=== PATIENT | male | born 1960 | race Caucasian/White ===

== ENCOUNTER 2019-09-20 16:31 | Emergency (ER) | payer MEDICARE, SELFPAY ==
[2019-09-20 16:41] VITALS: BP 157/88; PULSE 86; RESP 16; TEMP 36.6; O2SAT 96; BMI 33.9
[2019-09-20] MEDS: famotidine 20 mg/2 mL INJ 40 MG IVP (17:21)
[2019-09-20] MEDS: sodium chloride 0.9% 1,000 ML 999 ML IV (17:22)
[2019-09-20 17:31] VITALS: BP 149/88; PULSE 68; RESP 13; O2SAT 93
--- NOTE | 2019-09-20 17:45 | ED_ITS ---
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 About 1 hour prior to arrival he got stung by a red wasp and had some difficulty breathing. He immediately uses EpiPen. He presents to the emergency department because his noticed the area that was stung was becoming more erythematous and so brought him in to be evaluated. The patient feels better but tired. He also reports chest pain on the left near where he was stung. MD complaint: allergic reaction Onset (ago): hour(s) (1) Associated symptoms: Reports difficulty breathing, nausea and rash; Deny hoarseness Severity: moderate Treatment prior to arrival: epinephrine Previous Allergic Reaction History: anaphylaxis Review of Systems General: Reports: 10 or more systems reviewed and unremarkable except in HPI and below Const: Denies: fever(s), chills or body aches Eyes: Denies: change in vision or blurry vision ENMT: Denies: throat pain, enlarged tonsils, odynophagia, hoarseness, mouth pain or swelling of lips/tongue Card: Reports: chest pain; Denies: palpitations, irregular heart rhythm, edema or swelling of feet/ankles Resp: Denies: dyspnea, productive cough or non-productive cough GI: Reports: nausea : Denies: flank pain, dysuria, urinary frequency, urinary urgency or urinary hesitancy Musc: Denies: neck pain, back pain or extremity swelling Skin/Breast: Denies: rash, pruritus or erythema Neuro: Denies: headache(s), numbness in extremities or weakness in extremities Endo: Denies: polyuria, polydipsia or tired all the time PFS ED PFSH: Social History Smoking and tobacco status: never smoked Physical Exam Const: COMMON NORMALS: no acute distress, average body habitus, patient oriented x3, no limitations, healthy appearing, alert and well nourished HENMT: COMMON NORMALS: normocephalic, atraumatic and moist oral mucous membranes HEAD & SCALP: normocephalic and atraumatic Neck/C-Spine: COMMON NORMALS: no meningeal signs and no JVD Resp: COMMON NORMALS: normal respiratory effort, No retractions, No use of accessory muscles, clear to auscultation bilaterally and percussion normal AUSCULTATION: clear to auscultation bilaterally PERCUSSION: percussion normal Cardio: COMMON NORMALS: no JVD, regular rate, regular rhythm, S1 normal heart sound present, S2 normal heart sound present, No gallops present (Cardio), No clicks present (Cardio), No murmurs present (Cardio), No rub (Cardio) and Peripheral pulses 2+ throughout RATE: regular rate RHYTHM: regular rhythm HEART SOUNDS: S1 normal heart sound present and S2 normal heart sound present PERIPHERAL PULSES: Peripheral pulses 2+ throughout GI: COMMON NORMALS: Normal to inspection, nondistended, normoactive bowel sounds present, Soft to palpation, non-tender, No hepatosplenomegaly present, no masses and no bruits PALPATION: Yes Soft to palpation and Yes No hepatosplenomegaly present : COMMON NORMALS: Yes no CVA tenderness BLADDER/KIDNEY EXAM: Yes no CVA tenderness Back/Pelvis: COMMON NORMALS: no CVA tenderness Extremity: COMMON NORMALS: normal to inspection, full ROM, capillary refill normal, no calf tenderness and no pedal edema Neuro: COMMON NORMALS: patient oriented x3 SENSORIUM/ORIENTATION: Yes alert MENINGEAL SIGNS: Yes no meningeal signs Skin: COMMON NORMALS: no wounds, turgor normal, no jaundice, no petechiae and no mottling NARRATIVE SKIN EXAM: Sting leila seen in his left lower chest wall anteriorly, with an area of erythema about 6 cm surrounding the leila. The area is tender and warm. GENERAL SKIN EXAM: turgor normal Course Reevaluation(s): Reevaluation #1: Discussed his lab findings with him. All negative for acute findings. EKG normal. He feels a lot better now. Rash has resolved. We will discharge him home with a prescription for oral steroids as well as a refill of his EpiPen. He voiced understanding and he is in agreement with the plan. Time: 19:07 Vital Signs: Vital signs: Vital Signs Temperature 97.8 F 09/20/19 16:41 Pulse Rate 61 09/20/19 19:27 Respiratory Rate 16 09/20/19 19:27 Blood Pressure 167/87 09/20/19 19:27 Pulse Oximetry 95 09/20/19 19:27 MDM - Allergic Reaction MDM Narrative: Medical decision making narrative: Patient who had an anaphylactic reaction to a wasp sting. Luckily he used his EpiPen before arriving at the emergency department. He obtain much improvement following a corticosteroid injection, Benadryl, and an H2 receptor vanna. He is discharged home on oral corticosteroids. His EpiPen prescription was refilled. Medical Records: Attestation: I reviewed the patient's medical records. Lab Data: Attestation: I reviewed the patient's lab results. Labs: Lab Results 09/20/19 09/20/19 09/20/19 Range/Units 17:00 17:00 17:00 WBC 7.6 (4.0-10.0) 10^3/ uL RBC 5.33 H (4.1-5.3) 10^6/u L Hgb 16.0 (11.7-16.6) g/dL Hct 48.5 (42.0-52.0) % MCV 91.0 (80-94) fL MCH 30.0 (28.0-34.0) pg MCHC 33.0 (30.0-36.0) g/dL RDW 12.5 (12.1-15.1) % Plt Count 247 (130-400) 10^3/c mm MPV 10.0 (7.4-10.4) fL Neut % (Auto) 55.0 % Lymph % (Auto) 30.1 % Ritchie % (Auto) 9.9 % Eos % (Auto) 4.2 % Baso % (Auto) 0.7 % Neut # (Auto) 4.2 (1.8-7.7) 10^3/u L Lymph # (Auto) 2.3 (0.8-4.8) 10^3/u L Ritchie # (Auto) 0.8 (0.2-0.9) 10^3/u L Eos # (Auto) 0.3 (0.0-0.8) 10^3/u L Baso # (Auto) 0.1 (0.0-0.1) 10^3/u L Nucleated RBC % (a uto) 0 % Nucleated RBCs # 0.0 /100WBC Sodium 141 (136-145) mmol/L Potassium 3.5 (3.5-5.1) mmol/L Chloride 102 (98-107) mmol/L Carbon Dioxide 25 (22-29) mmol/L Anion Gap 17.5 (5-19) BUN 17 (8-23) mg/dL Creatinine 1.2 (0.7-1.2) mg/dL GFR Calculation 61.6 L (90-130) mL/min Glucose 101 (65-115) mg/dL Calculated Osmolal ity 289 (285-295) mOsm/k g Calcium 9.6 (8.5-10.5) mg/dL Total Bilirubin 0.3 (0.15-1.2) mg/dL AST 27 (0-40) U/L ALT 26 (0-41) U/L Alkaline Phosphata se 73 (40-130) IU/L Troponin T Baselin e 15 (0-15) ng/L Troponin T 120 Min sherry (0-15) ng/L Delta Troponin T (0-10) ABS# Total Protein 6.8 (6.6-8.7) g/dL Albumin 4.1 (3.5-5.2) g/dL Globulin 2.7 (1.3-4.6) g/dL 09/20/19 Range/Units 19:23 WBC (4.0-10.0) 10^3/ uL RBC (4.1-5.3) 10^6/u L Hgb (11.7-16.6) g/dL Hct (42.0-52.0) % MCV (80-94) fL MCH (28.0-34.0) pg MCHC (30.0-36.0) g/dL RDW (12.1-15.1) % Plt Count (130-400) 10^3/c mm MPV (7.4-10.4) fL Neut % (Auto) % Lymph % (Auto) % Ritchie % (Auto) % Eos % (Auto) % Baso % (Auto) % Neut # (Auto) (1.8-7.7) 10^3/u L Lymph # (Auto) (0.8-4.8) 10^3/u L Ritchie # (Auto) (0.2-0.9) 10^3/u L Eos # (Auto) (0.0-0.8) 10^3/u L Baso # (Auto) (0.0-0.1) 10^3/u L Nucleated RBC % (a uto) % Nucleated RBCs # /100WBC Sodium (136-145) mmol/L Potassium (3.5-5.1) mmol/L Chloride (98-107) mmol/L Carbon Dioxide (22-29) mmol/L Anion Gap (5-19) BUN (8-23) mg/dL Creatinine (0.7-1.2) mg/dL GFR Calculation (90-130) mL/min Glucose (65-115) mg/dL Calculated Osmolal ity (285-295) mOsm/k g Calcium (8.5-10.5) mg/dL Total Bilirubin (0.15-1.2) mg/dL AST (0-40) U/L ALT (0-41) U/L Alkaline Phosphata se (40-130) IU/L Troponin T Baselin e (0-15) ng/L Troponin T 120 Min sherry 13.63 (0-15) ng/L Delta Troponin T -1.37 L (0-10) ABS# Total Protein (6.6-8.7) g/dL Albumin (3.5-5.2) g/dL Globulin (1.3-4.6) g/dL EKG Data^: EKG 1: Comuter generated interpretation: [address] [address] Electrocardiograph Report Draft Patient: George Parrish JRUnit #: [id number] : 9Acct#:[id number] Age/Sex: 59 / MADM Date: 09/20/19 [facility] Attending Dr: Ordering Provider/Ordering MD: Niharika Rmoo [place] [facility] [place] of Service: 09/20/19 Procedure(s): ECG 12 lead EKG Accession Number(s): [id number] Report Number: [id number] [facility] Test Date: 2019-09-20 Pat Name: George Parrish Department: Room: Gender: Male 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1960 Requested By: Niharika Romo I Order Number: [id number] Reading MD: Measurements Intervals [place] Rate: 60 P: 45 MN: 208 QRS: 24 QRSD: 87 T: 48 QT: 415 QTc: 418 Interpretive Statements SINUS RHYTHM No previous ECG available for comparison [id number] [email or web address] Dictated By:INTERFACE,USER Signed By:Signed Date/Time: DD/ 10 Discharge Plan Discharge Patient Disposition: Home, Self-Care Clinical Impression: Accidental wasp sting Anaphylaxis Qualifiers: Encounter type: initial encounter Qualified Code(s): T78.2XXA - Anaphylactic shock, unspecified, initial encounter Condition: Stable Prescriptions: New prednisone 20 mg tablet 20 mg PO BID 5 Days Qty: 15 RF: 0 EpiPen 2-Rupert 0.3 mg/0.3 mL auto-injector 0.3 mg IM Q10M PRN (Reason: anaphylaxis) Qty: 2 RF: 0 Discharge Orders: Discharge Order (Routine); Ordered 09/20/19 Ordered By: Niharika Romo Referrals: Tommie Garg MD [Primary Care Provider] - 1-3 days Patient Instructions: Anaphylaxis (ED) Activity Restrictions/Additional Instructions: Return for any new or worsening symptoms. Take the steroids as prescribed. Follow-up with your primary care provider within 3 days. Discharge Date/Time: 09/20/19 19:47 Coding Level of Care Code ED Flavor Extractor for Vinnie Castro
[2019-09-20 17:55] LABS: Basophils # 0.1 10^3/uL (0.0-0.1); Basophils % 0.7 %; Eosinophils # 0.3 10^3/uL (0.0-0.8); Eosinophils % 4.2 %; Hematocrit 48.5 % (42.0-52.0); Lymphocytes # 2.3 10^3/uL (0.8-4.8); Lymphocytes % 30.1 %; Monocytes # 0.8 10^3/uL (0.2-0.9); Monocytes % 9.9 %; Neutrophils # 4.2 10^3/uL (1.8-7.7); Nucleated Red Blood Cells % 0 %; Platelet Count 247 10^3/cmm (130-400); Red Blood Count 5.33 10^6/uL (4.1-5.3); Red Cell Distribution Width 12.5 % (12.1-15.1); White Blood Count 7.6 10^3/uL (4.0-10.0)
[2019-09-20 17:57] VITALS: BP 147/95; PULSE 64; RESP 13; O2SAT 97
[2019-09-20 18:06] LABS: Alanine Aminotransferase 26 U/L (0-41); Albumin Level 4.1 g/dL (3.5-5.2); Alkaline Phosphatase 73 IU/L (40-130); Anion Gap 17.5 (5-19); Aspartate Amino Transferase 27 U/L (0-40); Blood Urea Nitrogen 17 mg/dL (8-23); Calcium 9.6 mg/dL (8.5-10.5); Carbon Dioxide 25 mmol/L (22-29); Chloride 102 mmol/L (98-107); Globulin 2.7 g/dL (1.3-4.6); Glomerular Filtration Rate 61.6 mL/min (90-130); Glucose 101 mg/dL (65-115); Osmolality Calculated 289 mOsm/kg (285-295); Potassium 3.5 mmol/L (3.5-5.1); Sodium 141 mmol/L (136-145); Total Bilirubin 0.3 mg/dL (0.15-1.2); Total Protein 6.8 g/dL (6.6-8.7)
[2019-09-20] MEDS: ketorolac 30 mg/mL INJ IVP (18:06)
[2019-09-20] MEDS: diphenhydrAMINE 50 mg/mL SDV 1mL 25 MG IVP (18:06)
[2019-09-20 18:11] VITALS: BP 151/93; PULSE 71; RESP 14; O2SAT 97
[2019-09-20 18:24] LABS: Troponin(5th) Baseline 15 ng/L (0-15)
[2019-09-20 19:27] VITALS: BP 167/87; PULSE 61; RESP 16; O2SAT 95
--- NOTE | 2019-09-20 19:27 | ECG_ITS ---
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 Measurements Intervals [place] Rate: 60 P: 45 UT: 208 QRS: 24 QRSD: 87 T: 48 QT: 415 QTc: 418 Interpretive Statements SINUS RHYTHM No previous ECG available for comparison Electronically Signed On 09-21-2019 18:39:23 CDT by Florencia Pizarro M.D. [id number]
[2019-09-20 19:55] LABS: Troponin 5 2HR 13.63 ng/L (0-15)
[2019-09-20 20:00] LABS: Troponin 5 2HR Delta -1.37 ABS# (0-10)
== END 2019-09-20 19:47 | disposition home or self-care (01) ==
PROVIDERS: Emergency Provider Family Medicine; PCP Family Medicine
DX: T63.461A Toxic effect of venom of wasps, accidental (unintentional), initial encounter (principal); T78.2XXA Anaphylactic shock, unspecified, initial encounter; W57.XXXA Bitten or stung by nonvenomous insect and other nonvenomous arthropods, initial encounter
CPT/HCPCS: 12345; 80053; 84484; 85025; 93005; 96360; 96361; 96374; 96375; 99283; 99284; J1200; J1885; J2930; J3490; J7030

== ENCOUNTER 2019-11-08 15:19 | Emergency (ER) | payer MEDICARE, SELFPAY ==
[2019-11-08 15:27] VITALS: BP 122/79; PULSE 103; RESP 14; TEMP 36.6; O2SAT 96; BMI 34.4
[2019-11-08 15:31] VITALS: O2SAT 92
--- NOTE | 2019-11-08 15:40 | ED_ITS ---
HPI - Allergic Reaction General: Chief complaint: Allergic Reaction Stated complaint: wasp sting Time Seen by Provider: 11/08/19 15:33 Source: patient Mode of arrival: ambulatory History of Present Illness: HPI narrative: George is a nice 59-year-old male who comes in after being stung by a wasp on the right volar forearm. Patient has a history of anaphylactic reactions and gave himself an injection of an EpiPen. The only symptom he had was that of sore throat but that is improving. He denies a history of biphasic reactions. He denies any vomiting, diarrhea, shortness of breath or any other complaints. Associated symptoms: Deny abdominal pain, dizziness, facial swelling, hoarseness, nausea, tongue swelling or vomiting Review of Systems Const: Denies: fever(s), chills, body aches, fatigue, malaise or diaphoresis Eyes: Denies: change in vision, blurry vision, blind spots, photophobia, eye discharge or eye redness ENMT: Reports: throat pain; Denies: odynophagia, hoarseness, swelling of lips/tongue, oral sores, ear or mastoid pain, ear discharge, change in hearing or nasal discharge Card: Denies: chest pain, palpitations, irregular heart rhythm, edema, lightheadedness, syncope, pre-syncope, dyspnea on exertion or orthopnea Resp: Denies: dyspnea, productive cough, non-productive cough, wheezing, hemoptysis or chest congestion GI: Denies: abdominal pain, nausea, vomiting, hematemesis, coffee ground emesis, heartburn, diarrhea, constipation, GI cramping, hematochezia or melena : Denies: flank pain, dysuria, urinary frequency, urinary urgency or hematuria Musc: Denies: neck pain, back pain, extremity pain, extremity swelling, joint pain, joint swelling, joint redness, joint warmth or joint stiffness Skin/Breast: Denies: rash, pruritus, erythema, skin tenderness or jaundice Neuro: Denies: headache(s), numbness in extremities, weakness in extremities, sensory changes, lack of coordination, difficulty walking, dizziness, vertigo, confusion, Slurred speech present or seizure-like activity Bam/Lymph: Denies: easy bruising, easy bleeding, petechiae, purpura or enlarged lymph nodes All/Imm: Denies: urticaria, throat swelling, tongue swelling, facial swelling or acute wheezing PFSH ED PFSH: Medical History Gout Hypertension Surgical History Previous back surgery Social History Smoking and tobacco status: never smoked Physical Exam Const: COMMON NORMALS: no acute distress, patient oriented x3, no limitations, healthy appearing and well nourished GENERAL APPEARANCE: cooperative, well kempt and well developed HENMT: COMMON NORMALS: normocephalic, atraumatic, external ears normal, EAC's normal and Normal external nose present HEAD & SCALP: normal to inspection, normocephalic and atraumatic FACE & SINUS: normal facial exam and face symmetric NOSE: Normal external nose present and Normal nares present EXTERNAL EAR: Yes external ears normal EXTERNAL AUDITORY CANAL: EAC's normal MOUTH: Normal oral and palatal mucosa present, lip normal and tongue normal Eye: COMMON NORMALS: Equal, round and reactive pupils present and conjunctivae normal GENERAL EYE: appearance normal, both eyes and all related structures ALIGNMENT: Yes alignment normal PERIORBITAL: periorbital findings normal EYELID: eyelids normal CONJUNCTIVA: Yes conjunctivae normal SCLERA: sclerae normal PUPIL: Yes Equal, round and reactive pupils present Neck/C-Spine: COMMON NORMALS: full ROM, no lymphadenopathy, supple, no meningeal signs and no JVD GENERAL: Yes normal visual inspection and Yes trachea midline Chest: COMMONS NORMALS: normal inspection of the chest and normal palpation of entire chest wall Resp: COMMON NORMALS: normal respiratory effort, No retractions and No use of accessory muscles EFFORT & INSPECTION: Yes able to speak in complete sentences and Yes symmetric chest movement AUSCULTATION: no crackles, no rales, no rhonchi and no wheezes Cardio: COMMON NORMALS: no JVD, regular rate, regular rhythm, S1 normal heart sound present and S2 normal heart sound present RATE: regular rate RHYTHM: regular rhythm HEART SOUNDS: S1 normal heart sound present, S2 normal heart sound present, no click, no gallops, no murmurs, no rubs and abnormal split S2 GI: COMMON NORMALS: Soft to palpation and No hepatosplenomegaly present PALPATION: Yes Soft to palpation, No Tenderness to palpation present (GI), No Guarding due to palpation present (GI), No Rigid due to palpation, Yes No hepatosplenomegaly present, No Hernia present, No Palpable mass present and No Pulsatile mass present : COMMON NORMALS: Yes no CVA tenderness BLADDER/KIDNEY EXAM: Yes no CVA tenderness Back/Pelvis: COMMON NORMALS: no CVA tenderness, thoracic and lumbar spine normal to inspection, no thoracic nor lumbar tenderness and thoraco-lumbar ROM normal Extremity: COMMON NORMALS: normal to inspection, full ROM, capillary refill normal, no joint enlargement, no clubbing, cyanosis or edema and no calf tenderness Neuro: COMMON NORMALS: patient oriented x3, CN's II-XII intact bilaterally, moves all extremities, no focal motor deficits and no sensory deficits noted MENINGEAL SIGNS: Yes no meningeal signs SPEECH: speech normal Psych: COMMON NORMALS: mental status grossly normal, Normal thought process present, cooperative, normal affect, speech normal and activity/motor behavior normal APPEARANCE: Yes well kempt SPEECH: Yes normal speech THOUGHT PROCESS: Normal thought process present Skin: COMMON NORMALS: no rashes or lesions noted, turgor normal, no jaundice, no petechiae and no mottling NARRATIVE SKIN EXAM: Right volar forearm with minimal allergic reaction noted. No stinger still felt in wound. GENERAL SKIN EXAM: no rashes or lesions noted and turgor normal Course Vital Signs: Vital signs: Vital Signs Temperature 97.8 F 11/08/19 15:27 Pulse Rate 96 11/08/19 15:50 Respiratory Rate 16 11/08/19 15:50 Blood Pressure 122/79 11/08/19 15:27 Pulse Oximetry 99 11/08/19 15:50 MDM - Allergic Reaction MDM Narrative: Medical decision making narrative: 1730 -patient symptoms have completely resolved. He states he is feeling good and wants to go home. He has EpiPen's at home if he needs them. Clinically at this time the patient shows no sign or symptom of anaphylactic reaction. The spot on his harm has progressed minimally. The patient understands the signs and symptoms of anaphylaxis and agrees to return should his symptoms change or worsen but at this time he is feeling much better and would like to go home. Discharge Plan Discharge Patient Disposition: Home Clinical Impression: Anaphylaxis Qualifiers: Encounter type: initial encounter Qualified Code(s): T78.2XXA - Anaphylactic shock, unspecified, initial encounter Condition: Stable Prescriptions: New prednisone 10 mg tablet 20 mg PO TID 5 Days Qty: 30 RF: 0 No Action cyclobenzaprine 10 mg tablet 10 mg PO TID PRN (Reason: unknown) RF: 0 allopurinol 100 mg tablet 100 mg PO DAILY RF: 0 triamcinolone acetonide 0.1 % ointment 1 applic TOPICAL DAILY PRN (Reason: unknown) RF: 0 montelukast 10 mg tablet 10 mg PO DAILY RF: 0 hydrochlorothiazide 25 mg tablet 25 mg PO DAILY RF: 0 lisinopril 40 mg tablet 40 mg PO DAILY RF: 0 epinephrine [EpiPen 2-Rupert] 0.3 mg/0.3 mL auto-injector 0.3 mg IM Q10M PRN (Reason: anaphylaxis) Qty: 2 RF: 0 Discharge Orders: Discharge Order (Routine); Ordered 11/08/19 Ordered By: Annalise Gomez Referrals: Tommie Garg MD [Primary Care Provider] - 1-3 days Discharge Diet: Advance as tolerated Discharge Activity: Increase activity as tolerated Patient Instructions: Insect Bite or Sting (ED), Anaphylaxis (ED) Activity Restrictions/Additional Instructions: Please return to the ER immediately for any of the signs or symptoms listed on your discharge instruction sheets, worsening/changing of your symptoms, you are not getting better as quickly as expected, or for ANY other cause or concerns. Return to the ER immediately if you have to use your EpiPen again. Take Benadryl 50 mg every 6 hours for the next 2 days and Pepcid 40 mg every 12 hours for the next 2 days. Be certain to take your prednisone for the next 5 days. Return to the ER for shortness of breath, throat tightening, vomiting, diarrhea, skin rash, or for any other cause for concern. Coding Level of Care Code ED Earth Science Technician for Vinnie Fwd Exam Comprehensive
[2019-11-08 15:50] VITALS: PULSE 96; RESP 16; O2SAT 99
[2019-11-08] MEDS: ipratropium-albuterol 3 mL Neb INHALATION (15:50)
[2019-11-08] MEDS: famotidine 20 mg/2 mL INJ 40 MG IVP (15:54)
[2019-11-08] MEDS: diphenhydrAMINE 50 mg/mL SDV 1mL IVP (15:55)
[2019-11-08] MEDS: sodium chloride 0.9% 1,000 ML 100 ML IV (15:55)
[2019-11-08 16:31] VITALS: PULSE 96; RESP 17; O2SAT 93
[2019-11-08 17:30] VITALS: PULSE 93; RESP 13; O2SAT 95
[2019-11-08 17:38] VITALS: BP 110/81; PULSE 87; RESP 17; O2SAT 93
[2019-11-08] MEDS: predniSONE 20 mg Tablet 60 MG PO (17:41)
== END 2019-11-08 17:38 | disposition home or self-care (01) ==
PROVIDERS: Emergency Provider Emergency Medicine; PCP Family Medicine
DX: T78.2XXA Anaphylactic shock, unspecified, initial encounter (principal); I10 Essential (primary) hypertension
CPT/HCPCS: 12345; 94640; 96361; 96374; 96375; 99282; 99283; J1200; J2930; J3490; J7030; J7512